=== PATIENT | female | born 1955 | race Caucasian/White ===

== ENCOUNTER 2019-09-04 01:32 | Day surgery (SDC) | payer OTHER, SELFPAY ==
[2019-08-20 14:05] VITALS: BMI 28.3
[2019-09-04] VITALS (9 sets, daily range): BP systolic 129–173; BP diastolic 60–88; PULSE 64–83; RESP 10–18; TEMP 36.1–36.9; O2SAT 92–100
--- NOTE | 2019-09-04 12:40 | WPDANESEPPF ---
Anes - Initial Pre Proc Eval Procedure: Operation Date: 09/04/19 14:00 Proposed Procedures p Right Tissue Travelift Operator Placement with Alloderm - Isaac Iglesias MD <Jimmy Sanders MD - Last Filed: 09/04/19 12:40> Date/Time: 09/04/19 12:40 <Jimmy Sanders MD - Last Filed: 09/04/19 12:40> Surgeon: Isaac Iglesias MD <Jimmy Sanders MD - Last Filed: 09/04/19 12:40> Pre Op Diagnosis: Acquired Deformity Right Breast <Jimmy Sanders MD - Last Filed: 09/04/19 12:40> Patient Data Age: 64 Gender: F Height: 1.6 m Weight: 77.6 kg <Jimmy Sanders MD - Last Filed: 09/04/19 12:40> Last Vital Signs Temp 36.9 C 09/04/19 12:20 Pulse 71 09/04/19 12:20 Resp 18 09/04/19 12:20 BP 149/60 H 09/04/19 12:20 Pulse Ox 99 09/04/19 12:20 <Jimmy Sanders MD - Last Filed: 09/04/19 12:40> Allergies Allergy/AdvReac Type Severity Reaction Status Date / Time No Known Allergies Allergy Unknown Verified 08/20/19 13:52 <Jimmy Sanders MD - Last Filed: 09/04/19 12:40> Home Medications Medication Instructions Recorded Confirmed Type alprazolam 1 mg tablet 1 mg PO HS PRN 05/27/19 08/20/19 History cyclobenzaprine 5 mg tablet 5 mg PO TID PRN #30 tablet 08/26/19 08/26/19 Rx hydrocodone 5 mg-acetaminophen 325 1 tablet PO Q6H PRN #15 tablet 08/26/19 08/26/19 Rx mg tablet levofloxacin 750 mg tablet 750 mg PO DAILY #30 tablet 08/26/19 08/26/19 Rx <Jimmy Sanders MD - Last Filed: 09/04/19 12:40> Patient hx anesthesia problems: post op nausea/vomiting <Jimmy Sanders MD - Last Filed: 09/04/19 12:40> Family hx anesthesia problems: none <Jimmy Sanders MD - Last Filed: 09/04/19 12:40> [facility] Past Medical History Medical History: Medical History (Updated 09/04/19 @ 12:40 by Jimmy Sanders MD) History of left breast cancer History of radiation therapy Obesity <Jimmy Sanders MD - Last Filed: 09/04/19 12:40> Surgical History Surgical History: Surgical History (Updated 09/03/19 @ 10:20 by Tyrone Durán DO) History of bilateral mastectomy 03/30/19 History of lumpectomy 05/28/18 History of tubal ligation <Jimmy Sanders MD - Last Filed: 09/04/19 12:40> Social History Social History: Social History Smoking status: Never smoker Second hand tobacco smoke exposure: No Alcohol intake: current <Jimmy Sanders MD - Last Filed: 09/04/19 12:40> Anes - Eval Final PreProcedure Day of Procedure 09/04/19 12:40 <Jimmy Sanders MD - Last Filed: 09/04/19 12:40> Patient weight: obese <Jimmy Sanders MD - Last Filed: 09/04/19 12:40> Heart: regular rate and rhythm <Jimmy Sanders MD - Last Filed: 09/04/19 12:40> Lungs: clear to auscultation and normal air movement <Jimmy Sanders MD - Last Filed: 09/04/19 12:40> Airway: Mallampati scale class II <Jimmy Sanders MD - Last Filed: 09/04/19 12:40> Neurological: alert and oriented <Jimmy Sanders MD - Last Filed: 09/04/19 12:40> Last oral intake: >/= 8 hours <Jimmy Sanders MD - Last Filed: 09/04/19 12:40> ASA classification: III <Jimmy Sanders MD - Last Filed: 09/04/19 12:40> Emergent: no <Jimmy Sanders MD - Last Filed: 09/04/19 12:40> Anesthetic plan: proceed <Jimmy Sanders MD - Last Filed: 09/04/19 12:40> Anesthesia type and monitoring: general LMA <Jimmy Sanders MD - Last Filed: 09/04/19 12:40> Informed Consent: The patient's anesthetic plan and its attendant risks and benefits were discussed with the patient/family/POA. Questions were solicited and answers provided to the satisfaction of the patient/family/POA. <Jimmy Sanders MD - Last Filed: 09/04/19 12:40>
[2019-09-04] MEDS: LACTATED RINGERS 1,000 ML 30 ML IV CONT ×2 (12:45→18:32)
[2019-09-04] MEDS: SCOPOLAMINE 1.5 MG PATCH TRANSDERM (12:54)
--- NOTE | 2019-09-04 14:40 | WPDHPUPDATE1 ---
History and Physical Update Update Date/Time: 09/04/19 14:40 History and Physical has been reviewed, including an updated exam of the patient. There are NO changes in the patient's condition. Risks, benefits, and alternatives have been discussed and questions answered. Patient agrees to proceed with procedure.
--- NOTE | 2019-09-04 16:08 | PM.PROC ---
Procedure Note - Detailed Date of procedure: 09/04/19 Pre-op diagnosis: Acquired Deformity Right Breast History bilateral mastectomy Post-op diagnosis: same Procedure performed: Right breast tissue purchasing/receiving placement Description of procedure: Patient was marked in the preoperative holding area with her verification. She was taken to the operating room placed supine on the operating room table. Anesthesia was provided by anesthesiology and she was prepped and draped in a standard sterile fashion. Surgical time-out was taken. 1% lidocaine and 0.25% Marcaine with epinephrine was used to provide a field block. A 15 blade used to make an incision through the previous scars. I continued dissection down to the pocket was identified and elevated. She did appear to have great coverage with incorporated Alloderm so no additional Alloderm was used. I irrigated copiously with the saline solution on TUR tubing. Verified strict hemostasis. I irrigated with a triple antibiotic Betadine containing solution. [employer] was introduced into the pocket. Tabs were sutured into place with a 2-0 Vicryl. I closed with 2-0 Vicryl followed by 3-0 Monocryl and a running subcuticular 4-0 Monocryl. I then filled the Sizer with air until appropriate tension. Dressings were placed and a surgical bra. She tolerated the procedure well. Awoke and taken to the PACU without difficulty. All instrument sponge counts were correct at the end of the case. Anesthesia: GLMA Surgeon: Isaac Iglesias MD Estimated blood loss (mL): 5 Drains: No Packing: No Pathology: none sent Complications: No immediate complications Condition: stable Disposition: PACU Findings: Right tissue purchasing/receiving:
[2019-09-04] MEDS: ceFAZolin 2 GM/D5W 50 ML 2 GM/50 ML BAG IVPB (16:27)
[2019-09-04] MEDS: LIDO 1%/EPINEPHRINE 1:100,000 20 ML VIAL 10 ML INFILTRATE (16:50)
[2019-09-04] MEDS: ONDANSETRON INJ 4 MG/2 ML VIAL IV PUSH (18:16)
== END 2019-09-04 19:26 | disposition home or self-care (01) ==
PROVIDERS: PCP Family Medicine; Visit Provider Surgery Plastic and Reconstructive Surgery
PROC: (CPT 19357; principal; 2019-09-04 14:00)
DX: Z42.1 Encounter for breast reconstruction following mastectomy (principal); Z90.13 Acquired absence of bilateral breasts and nipples; Z85.3 Personal history of malignant neoplasm of breast; Z92.3 Personal history of irradiation; E66.9 Obesity, unspecified; Z68.30 Body mass index [BMI] 30.0-30.9, adult
CPT/HCPCS: 19357; A9270; J0131; J0690; J1100; J1170; J1580; J2250; J2405; J2704; J3010; J7030; J7120

== ENCOUNTER 2020-05-03 00:54 | Outpatient (CLI) | payer OTHER, SELFPAY ==
[2020-05-03 20:52] LABS: SARS-CoV-2 RNA PCR Negative
== END 2020-05-03 00:55 | disposition home or self-care (01) ==
LOC: ANHCOVIDDT 00:54
PROVIDERS: PCP Family Medicine; Visit Provider Surgery Plastic and Reconstructive Surgery
DX: Z01.812 Encounter for preprocedural laboratory examination (principal); Z20.828 Contact with and (suspected) exposure to other viral communicable diseases
CPT/HCPCS: 87635; C9803; U0003

== ENCOUNTER 2020-05-05 01:15 | Day surgery (SDC) | payer OTHER, SELFPAY ==
[2020-04-25 13:50] VITALS: BMI 29.2
[2020-05-05 06:38] LABS: Urine Cotinine NEGATIVE
[2020-05-05] MEDS: LACTATED RINGERS 1,000 ML 30 ML IV CONT ×2 (06:50→09:40)
--- NOTE | 2020-05-05 06:52 | WPDHPUPDATE1 ---
History and Physical Update Update Date/Time: 05/05/20 06:52 History and Physical has been reviewed, including an updated exam of the patient. There are NO changes in the patient's condition. Risks, benefits, and alternatives have been discussed and questions answered. Patient agrees to proceed with procedure.
[2020-05-05 06:53] VITALS: BP 149/81; PULSE 69; RESP 16; TEMP 36.2; O2SAT 100
--- NOTE | 2020-05-05 07:14 | WPDANESEPPF ---
Anes - Initial Pre Proc Eval Procedure: Operation Date: 05/05/20 07:30 Proposed Procedures p Bilateral Breast Tissue Education Program Coordinator Exchange for Implants, Bilateral Breast Capsulectomy - Isaac Iglesias MD s Bilateral Breast Fat Grafting - Isaac Iglesias MD Date/Time: 05/05/20 07:14 Surgeon: Isaac Iglesias MD Pre Op Diagnosis: hx of breast CA Patient Data Age: 64 Gender: F Height: 5 ft 3 in Weight: 80.2 kg Last Vital Signs Temp 36.2 C L 05/05/20 06:53 Pulse 69 05/05/20 06:53 Resp 16 05/05/20 06:53 BP 149/81 H 05/05/20 06:53 Pulse Ox 100 05/05/20 06:53 Allergies Allergy/AdvReac Type Severity Reaction Status Date / Time No Known Allergies Allergy Unknown Verified 05/05/20 06:21 Home Medications Medication Instructions Recorded Confirmed Type cyclobenzaprine 5 mg tablet 5 mg PO TID PRN #30 tablet 01/14/20 04/25/20 Rx hydrocodone 5 mg-acetaminophen 325 1 tablet PO Q6H PRN #15 tablet 04/20/20 04/25/20 Rx mg tablet Laboratory Tests 05/05/20 06:20 Cotinine Negative Patient hx anesthesia problems: post op nausea/vomiting Family hx anesthesia problems: none PMFSH Past Medical History Medical History History of left breast cancer History of radiation therapy Obesity Surgical History Surgical History History of bilateral mastectomy 03/30/19 History of lumpectomy 05/28/18 History of tubal ligation Social History Social History Smoking status: Never smoker Second hand tobacco smoke exposure: No Alcohol intake: current Alcohol use details: STATES 2-3 DRINKS/WEEK Substance use: never Living arrangements: with family Spiritual care concerns: No Anes - Eval Final PreProcedure Day of Procedure 05/05/20 07:14 Patient weight: obese Heart: regular rate and rhythm Lungs: clear to auscultation Airway: Mallampati scale class II Neurological: alert and oriented Last oral intake: >/= 8 hours ASA classification: III Emergent: no Anesthetic plan: proceed Anesthesia type and monitoring: general LMA and standard monitoring Other findings: lump in throat post surg use glidescope no zofran Informed Consent: The patient's anesthetic plan and its attendant risks and benefits were discussed with the patient/family/POA. Questions were solicited and answers provided to the satisfaction of the patient/family/POA.
[2020-05-05] MEDS: ceFAZolin 2 GM/D5W 50 ML 2 GM/50 ML BAG IVPB (07:36)
--- NOTE | 2020-05-05 07:41 | PM.PROC ---
Procedure Note - Detailed Date of procedure: 05/05/20 Pre-op diagnosis: hx of breast CA Acquired bilateral breast deformity Post-op diagnosis: same Procedure performed: 1. Bilateral tissue chimney supervisor brick exchange for permanent implant 2. Revision right breast 10 cm 3. Revision left breast 10 cm 4. Bilateral breast fat grafting 5. Bilateral capsulorrhaphy/capsulotomy Description of procedure: She was marked in the preoperative holding area with her verification. We went over the risks, benefits, alternatives extensively. Discussed realistic expectations of outcome. Answered all of her questions to her satisfaction and consent obtained. She was taken to the operating room placed supine on the operating room table. Anesthesia provided by anesthesiology and prepped and draped in a standard sterile fashion. Surgical time-out was taken. I used a 14 gauge needle to make puncture site for planned suction lipectomy. I did a thorough abdominal examination prior to proceeding to rule out any hernias. I tumesced with a tumescent solution on the abdomen for planned suction lipectomy site. Using a 3 mm multi hole cannula I completed suction lipectomy into a gravity separation device as necessary. We allowed the separation of the adipose tissue. The meantime proceed with little revision of lateral breast. I had marked out the area for resection. Fifteen blade used to make an incision and I resected laterally to a good contour. This was closed with 2-0 Vicryl followed by 3-0 strata fix and running subcuticular 4-0 Monocryl. I ultimately closed with tissue glue at this site. I had adequate time for fat separation we used the central portion. This was injected with 3 mm cannula in multiple planes and passes over the tissue expanders to contour. Fifteen blade used to make an incision and I dissected down to the tissue chimney supervisor brick was identified. This was removed. Copious irrigated with triple antibiotic and Betadine containing solution. Verified strict hemostasis. On the left I placed the implant which would be the permanent implant using a Baptiste funnel closed using 2-0 Vicryl followed by 3-0 Monocryl in a running subcuticular 4-0 Monocryl. On the right I placed a Sizer and tailor tacked into place. We then adjusted the right size based on our observation measurements until we were happy with the size implant. I then removed again irrigated with saline solution followed by triple antibiotic Betadine containing solution. implant was placed using a Baptiste funnel. I closed using 2-0 Vicryl followed by 3-0 Monocryl in a running subcuticular 4-0 Monocryl and tissue glue. Dressings were placed. She was awoke and taken the PACU without difficulty. All instrument sponge counts were correct at the end of the case. Anesthesia: GLMA Surgeon: Isaac Iglesias MD Estimated blood loss (mL): 10 Drains: No Packing: No Pathology: none sent Complications: No immediate complications Condition: stable Disposition: PACU Findings: Bilateral Inspira SoftTouch 560cc Silicone Implants Right: REF SSF-560 SN [id number] Left: REF SSF-560 SN [id number] Fat grafting, harvest from abdomen Right breast: 50cc Left breast: 50cc
[2020-05-05] MEDS: LIDO 1%/EPINEPHRINE 1:100,000 20 ML VIAL 40 ML INFILTRATE (08:25)
[2020-05-05 09:40] VITALS: BP 151/63; PULSE 74; RESP 16; O2SAT 97
[2020-05-05 09:55] VITALS: BP 146/58; PULSE 73; RESP 16; O2SAT 99
[2020-05-05 10:15] VITALS: BP 126/63; PULSE 76; RESP 18; O2SAT 96
[2020-05-05 10:25] VITALS: BP 131/69; PULSE 63; RESP 16
[2020-05-05 10:40] VITALS: BP 149/65; PULSE 59; RESP 16
== END 2020-05-05 10:52 | disposition home or self-care (01) ==
PROVIDERS: PCP Family Medicine; Visit Provider Surgery Plastic and Reconstructive Surgery
PROC: (CPT 11970; principal; 2020-05-05 07:30)
PROC: (CPT 15769; 2020-05-05 07:30)
DX: Z42.1 Encounter for breast reconstruction following mastectomy (principal); Z85.3 Personal history of malignant neoplasm of breast; Z90.13 Acquired absence of bilateral breasts and nipples; E66.9 Obesity, unspecified; Z68.31 Body mass index [BMI] 31.0-31.9, adult
CPT/HCPCS: 11970; 80307; 88305; A9270; J0171; J0690; J1100; J1580; J2250; J2704; J3010; J7030; J7120